=== PATIENT | male | born 2000 | race Two or more races ===

== ENCOUNTER 2024-01-08 20:57 | Emergency (ER) | payer BC ==
[2024-01-08] MEDS: Glycerin Adult 2 GM Supp RECTAL ONE (22:00)
[2024-01-08] MEDS: Magnesium Citrate Solution 296 ML Bottle PO ONE (22:00)
== END 2024-01-08 22:03 | disposition home or self-care (01) ==
LOC: JD.ED 20:57
DX: K59.00 Constipation, unspecified (principal); Z88.2 Allergy status to sulfonamides; Z88.1 Allergy status to other antibiotic agents
CPT/HCPCS: 99283; A9270; 99282

== ENCOUNTER 2024-03-18 21:52 | Emergency (ER) | payer BC | END 2024-03-18 22:54 | disposition home or self-care (01) | LOC: JD.ED 21:52 | DX: H61.22 Impacted cerumen, left ear (principal); F17.200 Nicotine dependence, unspecified, uncomplicated; Z86.16 Personal history of COVID-19; Z88.2 Allergy status to sulfonamides; Z88.1 Allergy status to other antibiotic agents | CPT/HCPCS: 99283 ==

== ENCOUNTER 2024-04-10 14:15 | Emergency (ER) | payer BC ==
[2024-04-10] MEDS: Levofloxacin 750 MG Tab PO SCH (15:52)
[2024-04-10] MEDS: Diphtheria,Pertussis(Acell),Tetanus Vaccine 0.5 ML Syringe IM ONE (15:52)
[2024-04-10] MEDS ORDERED: Diphtheria,Pertussis(Acell),Tetanus Vaccine 0.5 ML Syringe ONE (15:58)
== END 2024-04-10 16:20 | disposition home or self-care (01) ==
LOC: JD.ED 14:15
DX: S91.342A Puncture wound with foreign body, left foot, initial encounter (principal); Z23 Encounter for immunization; Z86.16 Personal history of COVID-19; Z88.2 Allergy status to sulfonamides; Z88.1 Allergy status to other antibiotic agents; W45.0XXA Nail entering through skin, initial encounter
CPT/HCPCS: 90471; 90715; 99283; A9270